=== PATIENT | male | born 1940 | race Caucasian/White ===

== ENCOUNTER 2017-06-25 06:04 | Observation (INO) ==
[2017-06-25] MEDS ORDERED: 0.9 % Sodium Chloride 1,000 ML IVC ONE (06:27)
[2017-06-25] MEDS ORDERED: Ondansetron 4 MG/2 ML VIAL IVP ONE (06:31)
--- NOTE | 2017-06-25 06:31 | Emergency Department Note ---
Disposition Clinical Impression: Bradycardia Syncope Qualifiers: Syncope type: unspecified Qualified Code(s): R55 - Syncope and collapse Disposition: Still a Patient Condition: Fair Forms: ED Satisfaction Letter General Adult HPI - General Chief complaint: ED Fall Stated complaint: fall Time Seen by Provider: 06/25/17 06:15 Source: patient Mode of arrival: ambulatory Limitations: no limitations Nursing Notes Reviewed: Yes Vital Signs Reviewed: Yes - History of Present Illness HPI Narrative: 77-year-old male presents for evaluation of syncope. Patient states that he got up early this morning the help with his . Patient states that he ambulated to the restroom and use the restroom and then was ambulating back and felt foggy in the head. Patient also noted some nausea. Patient did not throughout but stated that he sat down in the chair. Patient then had a witnessed syncopal episode lasting approximately a minute. Patient denies simply falling asleep. Patient aroused without intervention. Syncope was witnessed by his . Patient slid out of the chair. Patient denies any headache. Patient denies any chest pain but did state that he felt diaphoretic. Patient denies any dyspnea. Denies any fevers. Patient states that he has increased his activity level over the past few days. Patient states that his heart rate typically runs around 60 and is not on any beta heath. Pain Scale: 0 - Related Data Home Medications Medication Instructions Recorded Confirmed Simvastatin 05/30/16 Synthroid 05/30/16 Previous Rx's Medication Instructions Recorded Amoxicillin 875 mg PO BID #20 tablet 05/30/16 DiphenhydraMINE [Benadryl] 25 mg PO Q8HR PRN #20 capsule 05/30/16 GuaiFENesin/Codeine [Robitussin 5 ml PO Q6HR PRN #120 ml 05/30/16 w/Codeine] Allergies Allergy/AdvReac Type Severity Reaction Status Date / Time No Known Allergies Allergy Verified 05/30/16 11:47 All systems ED: reviewed and negative except as stated. Constitutional: Denies: fever Cardiovascular: Denies: chest pain Respiratory: Denies: cough, dyspnea Gastrointestinal: Denies: abdominal pain, nausea, vomiting Past Medical History - Past Medical History Source: patient Medical history: Reports: hyperlipidemia, thyroid disease Psychiatric history: Reports: no psych history - Social History Smoking Status: Never smoker Smokeless Tobacco Status: No Alcohol use: Reports: occasionally Drug use: Reports: none Physical Exam - General Limitations: no limitations General appearance: alert, in no apparent distress - Head Head exam: atraumatic, normocephalic, normal inspection - Eye Eye exam: Present: normal appearance, PERRL, EOMI - ENT ENT exam: normal exam, normal oropharynx, mucous membranes moist - Neck Neck exam: Present: normal inspection - Chest Chest inspection: Present: normal inspection, symmetric chest wall rise - Respiratory Respiratory exam: Present: normal lung sounds bilaterally. Absent: respiratory distress, prolonged expiratory phase - Cardiovascular Cardiovascular exam: Present: regular rate, normal rhythm. Absent: systolic murmur - Abdominal Exam Abdominal exam: Present: soft, Non-Tender - Extremities Exam Extremities exam: Present: normal inspection. Absent: pedal edema - Back Exam Back exam: Present: normal inspection - Neurological Exam Neurological exam: Present: alert, oriented X3, CN II-XII intact - Skin Skin exam: Present: warm, dry, intact, normal color Course Course Narrative: Patient seen and examined. Patient will get basic cardiopulmonary screening evaluation. Patient also get symptomatic treatment. Disposition pending. - Reevaluation(s) Reevaluation #1: Patient will be signed out to the day shift provider. Time: 07:00 Vital Signs Temperature 97.4 F L 06/25/17 06:09 Pulse Rate 52 06/25/17 06:09 Respiratory Rate 16 06/25/17 06:09 Blood Pressure 169/77 06/25/17 06:09 O2 Sat by Pulse Oximetry 98 06/25/17 06:09 Temperature 97.4 F L 06/25/17 06:09 Pulse Rate 52 06/25/17 06:09 Respiratory Rate 16 06/25/17 06:09 Blood Pressure 169/77 06/25/17 06:09 O2 Sat by Pulse Oximetry 98 06/25/17 06:18 Oxygen Delivery Oxygen Delivery Room Air Medical Decision Making - Lab Data Result diagrams: 06/25/17 06:27 Lab Results 06/25/17 Range/Units 06:27 WBC 5.0 (4.3-11.1) K/mcL RBC 5.11 (4.19-5.50) M/mcL Hgb 16.2 (12.9-16.9) g/dL Hct 46.8 (37.5-50.1) % MCV 91.6 (83.0-100.0) fL MCH 31.7 (28.0-33.3) pg MCHC 34.6 (31.6-35.5) g/dL RDW 12.8 (11.5-14.5) % Plt Count 179 (140-400) K/mcL MPV 10.1 (9.4-12.4) fL Immature Gran % 0.2 (0-4) % Seg Neutrophils % 43.7 % Lymphocytes % 43.3 % Monocytes % 6.0 % Eosinophils % 5.6 % Basophils % 1.2 % Neutrophils # 2.2 (1.6-8.9) K/mcL Lymphocytes # 2.2 (0.6-4.6) K/mcL Monocytes # 0.3 (0.0-1.3) K/mcL Eosinophils # 0.3 (0.0-0.6) K/mcL Basophils # 0.1 (0.0-0.2) K/mcL S.B.A.RSebastian - Malvin.B.A.Jayashree Situation: Demographics Background: Presenting Complaint Assessment: Vital Signs, Patient/Family Expectation Recommendation: Barrier(s) to disposition, Recommendation based on pending studies, treatments, or consults S.B.A.RSebastian Report Given to: Dr. Ribeiro SSebastianB.ABrandon Repor Time: 07:00
[2017-06-25 06:59] LABS: Basophils # 0.1 K/mcL (0.0-0.2); Basophils % 1.2 %; Eosinophils # 0.3 K/mcL (0.0-0.6); Eosinophils % 5.6 %; Hematocrit 46.8 % (37.5-50.1); Hemoglobin 16.2 g/dL (12.9-16.9); Immature Granulocytes % 0.2 % (0-4); Lymphocytes # 2.2 K/mcL (0.6-4.6); Lymphocytes % 43.3 %; Mean Corpuscular HGB Conc 34.6 g/dL (31.6-35.5); Mean Corpuscular Hemoglobin 31.7 pg (28.0-33.3); Mean Corpuscular Volume 91.6 fL (83.0-100.0); Mean Platelet Volume 10.1 fL (9.4-12.4); Monocytes # 0.3 K/mcL (0.0-1.3); Neutrophils # 2.2 K/mcL (1.6-8.9); Platelet Count 179 K/mcL (140-400); Red Blood Count 5.11 M/mcL (4.19-5.50); Red Cell Distribution Width 12.8 % (11.5-14.5); Segmented Neutrophils % 43.7 %
[2017-06-25 07:04] LABS: Prothrombin Time 11.2 Seconds (9.4-12.1)
[2017-06-25 07:07] LABS: Activated Partial Thrombo Time 26.7 Seconds (26.0-36.0)
[2017-06-25 07:18] LABS: Troponin I < 0.03 ng/mL (< 0.04)
--- NOTE | 2017-06-25 07:20 | Emergency Department Note ---
Disposition Clinical Impression: Bradycardia Syncope Qualifiers: Syncope type: unspecified Qualified Code(s): R55 - Syncope and collapse Disposition: Still a Patient Condition: Fair General Adult HPI - General Chief complaint: ED Fall Stated complaint: fall Time Seen by Provider: 06/25/17 06:15 Source: patient Mode of arrival: ambulatory Limitations: no limitations Nursing Notes Reviewed: Yes Vital Signs Reviewed: Yes - History of Present Illness HPI Narrative: Patient was signed out to me by nighttime physicians Dr. Parker and Dr. Gama for further evaluation and final disposition. Please see their note for further details. Pain Scale: 0 - Related Data Home Medications Medication Instructions Recorded Confirmed Levothyroxine Sodium [Levoxyl] 88 mcg PO DAILY 06/25/17 06/25/17 Simvastatin [Zocor] 20 mg PO QPM 06/25/17 06/25/17 Allergies Allergy/AdvReac Type Severity Reaction Status Date / Time No Known Allergies Allergy Verified 05/30/16 11:47 Constitutional: Denies: fever Cardiovascular: Denies: chest pain Respiratory: Denies: cough, dyspnea Gastrointestinal: Denies: abdominal pain, nausea, vomiting Past Medical History - Past Medical History Medical history: Reports: hyperlipidemia, thyroid disease Psychiatric history: Reports: no psych history - Social History Smoking Status: Never smoker Smokeless Tobacco Status: No Alcohol use: Reports: occasionally Drug use: Reports: none Physical Exam - General Limitations: no limitations General appearance: alert, in no apparent distress Course Course Narrative: Patient was signed out to me by nighttime physicians Dr. Parker and Dr. Gama for further evaluation and final disposition. Please see their note for further details. Jorge is a 77-year-old male history of hypothyroidism and hyperlipidemia presents for syncopal episode. States around 5 o'clock this morning his will, regarding her hammertoe. The stitches had come out and she was bleeding. He states he got up ambulated to the restroom came back down and reports feeling foggy in the head. He sat down in the armchair and then had a syncopal episode for approximately a minute. This was witnessed by his . He denies any prodromal symptoms such as chest pain, shortness of breath, sudden headache. Review of his vital signs she is bradycardic in the mid-50s. Denies any recent illness or fever. He denies taking any beta heath. He states over the past several days he has been more stress lately as he works at the [employer] and is currently changing things around. Denies history of cardiac ischemic disease. Reports his father required pacemaker at the age of 50. On examination patient is awake alert and oriented person place and time. Neurologic exam is normal without any focal neural deficits. He has no neck tenderness. Heart is regular rate and rhythm. Lungs are clear auscultation bilaterally. Review of his EKG shows sinus bradycardia. No delta waves, Brugada pattern or signs of LVH. [place] interval is slightly prolonged 204. Given his symptoms of syncope with bradycardia he may require admission. Labs in CT of the head pending. - Reevaluation(s) Reevaluation #1: Patient remains asymptomatic in the room. Review of the CT of the head unremarkable. Review of the labs shows some hypothyroidism. He has not taken his thyroid medications today. Given his symptoms of syncopal episode and finding of sinus bradycardia and will admit for further observation and management. He has been on a continuous awake overnight monitor without any arrhythmia. EKG does not show any acute ischemic changes. No delta waves, Brugada pattern or signs of LVH. Patients in agreement with plan for admission and evaluation. Impression is syncope and bradycardia. Time: 08:45 - Consultations Consultation #1: Spoke with on-call hospitalist nathan Steele to admit for syncope and bradycardia. No further orders at this time Time: 08:46 Vital Signs Temperature 97.4 F L 06/25/17 06:09 Pulse Rate 52 06/25/17 06:09 Respiratory Rate 16 06/25/17 06:09 Blood Pressure 169/77 06/25/17 06:09 O2 Sat by Pulse Oximetry 98 06/25/17 06:09 Temperature 97.4 F L 06/25/17 06:09 Pulse Rate 52 06/25/17 09:02 Respiratory Rate 17 06/25/17 09:31 Blood Pressure 134/81 06/25/17 09:31 O2 Sat by Pulse Oximetry 96 06/25/17 09:02 Oxygen Delivery Oxygen Delivery Room Air Medical Decision Making - MDM Narrative Medical decision making narrative: Patient was discussed with my attending physician who agrees with ED management and final disposition. They independently evaluated the patient. Please refer to their attestation to this encounter for additional information. This note was generated by [employer] voice recognition software and as a result grammatical or spelling errors may occur using this program. - Medical Records Medical records reviewed: Yes I reviewed the patient's medical records. - Lab Data Lab results reviewed: Yes I reviewed the patient's lab results. Result diagrams: 06/25/17 06:27 06/25/17 06:27 Lab Results 06/25/17 06/25/17 06/25/17 Range/Units 06:27 06:27 06:27 WBC 5.0 (4.3-11.1) K/mcL RBC 5.11 (4.19-5.50) M/mcL Hgb 16.2 (12.9-16.9) g/dL Hct 46.8 (37.5-50.1) % MCV 91.6 (83.0-100.0) fL MCH 31.7 (28.0-33.3) pg MCHC 34.6 (31.6-35.5) g/dL RDW 12.8 (11.5-14.5) % Plt Count 179 (140-400) K/mcL MPV 10.1 (9.4-12.4) fL Immature Gran % 0.2 (0-4) % Seg Neutrophils % 43.7 % Lymphocytes % 43.3 % Monocytes % 6.0 % Eosinophils % 5.6 % Basophils % 1.2 % Neutrophils # 2.2 (1.6-8.9) K/mcL Lymphocytes # 2.2 (0.6-4.6) K/mcL Monocytes # 0.3 (0.0-1.3) K/mcL Eosinophils # 0.3 (0.0-0.6) K/mcL Basophils # 0.1 (0.0-0.2) K/mcL PT 11.2 (9.4-12.1) Seconds INR 1.0 APTT 26.7 (26.0-36.0) Seconds Sodium 137 (136-145) mEq/L Potassium 4.4 (3.5-5.1) mEq/L Chloride 109 H (98-107) mEq/L Carbon Dioxide 21 L (23-29) mEq/L BUN 24 H (8-23) mg/dL Creatinine 0.97 (0.70-1.30) mg/dL Est GFR ( Amer) > 60 (> 60) Est GFR (Non-Af Amer) > 60 (> 60) BUN/Creatinine Ratio 25 (6-26) Glucose 120 H (70-105) mg/dL Calculated Osmolality 289 (280-300) Calcium 9.3 (8.6-10.3) mg/dL Troponin I < 0.03 (< 0.04) ng/mL TSH (0.340-5.600) mcIU/mL Urine Color (Yellow) Urine Clarity (Clear) Urine pH (5.0-8.0) pH Units Ur Specific [place] (1.010-1.025) Urine Protein (Neg-Trace) mg/dL Urine Glucose (UA) (Normal) mg/dL Urine Ketones (Negative) mg/dL Urine Blood (Negative) Urine Nitrite (Negative) Urine Bilirubin (Negative) Urine Urobilinogen (Normal) mg/dL Ur Leukocyte Esterase (Negative) 06/25/17 06/25/17 Range/Units 06:33 08:04 WBC (4.3-11.1) K/mcL RBC (4.19-5.50) M/mcL Hgb (12.9-16.9) g/dL Hct (37.5-50.1) % MCV (83.0-100.0) fL MCH (28.0-33.3) pg MCHC (31.6-35.5) g/dL RDW (11.5-14.5) % Plt Count (140-400) K/mcL MPV (9.4-12.4) fL Immature Gran % (0-4) % Seg Neutrophils % % Lymphocytes % % Monocytes % % Eosinophils % % Basophils % % Neutrophils # (1.6-8.9) K/mcL Lymphocytes # (0.6-4.6) K/mcL Monocytes # (0.0-1.3) K/mcL Eosinophils # (0.0-0.6) K/mcL Basophils # (0.0-0.2) K/mcL PT (9.4-12.1) Seconds INR APTT (26.0-36.0) Seconds Sodium (136-145) mEq/L Potassium (3.5-5.1) mEq/L Chloride (98-107) mEq/L Carbon Dioxide (23-29) mEq/L BUN (8-23) mg/dL Creatinine (0.70-1.30) mg/dL Est GFR ( Amer) (> 60) Est GFR (Non-Af Amer) (> 60) BUN/Creatinine Ratio (6-26) Glucose (70-105) mg/dL Calculated Osmolality (280-300) Calcium (8.6-10.3) mg/dL Troponin I (< 0.04) ng/mL TSH 6.978 H (0.340-5.600) mcIU/mL Urine Color Yellow (Yellow) Urine Clarity Clear (Clear) Urine pH 6.0 (5.0-8.0) pH Units Ur Specific [place] 1.019 (1.010-1.025) Urine Protein Negative (Neg-Trace) mg/dL Urine Glucose (UA) Normal (Normal) mg/dL Urine Ketones Negative (Negative) mg/dL Urine Blood Negative (Negative) Urine Nitrite Negative (Negative) Urine Bilirubin Negative (Negative) Urine Urobilinogen Normal (Normal) mg/dL Ur Leukocyte Esterase Negative (Negative) - Radiology Data Radiology results reviewed: Yes I reviewed the patient's radiology results. Chest X-Ray 06/25/17 06:27 IMPRESSION: Low lung volumes. No acute cardiopulmonary process. D/ / Agusto Mendoza MD / Agusto Mendoza MD Interpreting Provider: Agusto Mendoza MD Head CT 06/25/17 06:28 IMPRESSION: No acute intracranial abnormality. D/ / Devan Elaine / Devan Elaine Interpreting Provider: Devan Elaine - EKG Data EKG #1 EKG attestation: Yes I reviewed and interpreted this EKG. EKG results narrative: EKG performed 0646 sinus bradycardia 51 bpm, normal axis, good R wave progression, no ST elevation or depression, prolonged [place] interval 204 without dropped beats. No signs of Brugada pattern, LVH or delta waves. No acute ischemic changes. Attestation Statement - Attestation Attestation: I, Sergio Avalos DO, examined this patient [id number] and my medical decision-making was reviewed with Lester Ribeiro DO , Resident Physician. I agree with the documented findings, disposition and treatment plan as described except to the extent set forth below. Please see my progress notes for details.
--- NOTE | 2017-06-25 07:37 | Emergency Department Note ---
Disposition Clinical Impression: Bradycardia Syncope Qualifiers: Syncope type: unspecified Qualified Code(s): R55 - Syncope and collapse Disposition: Still a Patient Condition: Fair Referrals: Jose Parra DO [Primary Care Provider] - Forms: ED Satisfaction Letter Time of Disposition: 08:35 General Adult HPI - General Chief complaint: ED Fall Stated complaint: fall Time Seen by Provider: 06/25/17 06:15 Source: patient Mode of arrival: ambulatory Limitations: no limitations - History of Present Illness Pain Scale: 0 - Related Data Home Medications Medication Instructions Recorded Confirmed Simvastatin 05/30/16 Synthroid 05/30/16 Previous Rx's Medication Instructions Recorded Amoxicillin 875 mg PO BID #20 tablet 05/30/16 DiphenhydraMINE [Benadryl] 25 mg PO Q8HR PRN #20 capsule 05/30/16 GuaiFENesin/Codeine [Robitussin 5 ml PO Q6HR PRN #120 ml 05/30/16 w/Codeine] Allergies Allergy/AdvReac Type Severity Reaction Status Date / Time No Known Allergies Allergy Verified 05/30/16 11:47 Constitutional: Denies: fever Cardiovascular: Denies: chest pain Respiratory: Denies: cough, dyspnea Gastrointestinal: Denies: abdominal pain, nausea, vomiting Past Medical History - Past Medical History Medical history: Reports: hyperlipidemia, thyroid disease Psychiatric history: Reports: no psych history - Social History Smoking Status: Never smoker Smokeless Tobacco Status: No Alcohol use: Reports: occasionally Drug use: Reports: none Physical Exam - General Limitations: no limitations General appearance: alert, in no apparent distress Course Vital Signs Temperature 97.4 F L 06/25/17 06:09 Pulse Rate 52 06/25/17 06:09 Respiratory Rate 16 06/25/17 06:09 Blood Pressure 169/77 06/25/17 06:09 O2 Sat by Pulse Oximetry 98 06/25/17 06:09 Temperature 97.4 F L 06/25/17 06:09 Pulse Rate 53 06/25/17 08:00 Respiratory Rate 12 06/25/17 08:00 Blood Pressure 142/91 06/25/17 08:00 O2 Sat by Pulse Oximetry 99 06/25/17 08:00 Oxygen Delivery Oxygen Delivery Room Air Medical Decision Making - Lab Data Result diagrams: 06/25/17 06:27 06/25/17 06:27 Lab Results 06/25/17 06/25/17 06/25/17 Range/Units 06:27 06:27 06:27 WBC 5.0 (4.3-11.1) K/mcL RBC 5.11 (4.19-5.50) M/mcL Hgb 16.2 (12.9-16.9) g/dL Hct 46.8 (37.5-50.1) % MCV 91.6 (83.0-100.0) fL MCH 31.7 (28.0-33.3) pg MCHC 34.6 (31.6-35.5) g/dL RDW 12.8 (11.5-14.5) % Plt Count 179 (140-400) K/mcL MPV 10.1 (9.4-12.4) fL Immature Gran % 0.2 (0-4) % Seg Neutrophils % 43.7 % Lymphocytes % 43.3 % Monocytes % 6.0 % Eosinophils % 5.6 % Basophils % 1.2 % Neutrophils # 2.2 (1.6-8.9) K/mcL Lymphocytes # 2.2 (0.6-4.6) K/mcL Monocytes # 0.3 (0.0-1.3) K/mcL Eosinophils # 0.3 (0.0-0.6) K/mcL Basophils # 0.1 (0.0-0.2) K/mcL PT 11.2 (9.4-12.1) Seconds INR 1.0 APTT 26.7 (26.0-36.0) Seconds Sodium 137 (136-145) mEq/L Potassium 4.4 (3.5-5.1) mEq/L Chloride 109 H (98-107) mEq/L Carbon Dioxide 21 L (23-29) mEq/L BUN 24 H (8-23) mg/dL Creatinine 0.97 (0.70-1.30) mg/dL Est GFR ( Amer) > 60 (> 60) Est GFR (Non-Af Amer) > 60 (> 60) BUN/Creatinine Ratio 25 (6-26) Glucose 120 H (70-105) mg/dL Calculated Osmolality 289 (280-300) Calcium 9.3 (8.6-10.3) mg/dL Troponin I < 0.03 (< 0.04) ng/mL TSH (0.340-5.600) mcIU/mL 06/25/17 Range/Units 06:33 WBC (4.3-11.1) K/mcL RBC (4.19-5.50) M/mcL Hgb (12.9-16.9) g/dL Hct (37.5-50.1) % MCV (83.0-100.0) fL MCH (28.0-33.3) pg MCHC (31.6-35.5) g/dL RDW (11.5-14.5) % Plt Count (140-400) K/mcL MPV (9.4-12.4) fL Immature Gran % (0-4) % Seg Neutrophils % % Lymphocytes % % Monocytes % % Eosinophils % % Basophils % % Neutrophils # (1.6-8.9) K/mcL Lymphocytes # (0.6-4.6) K/mcL Monocytes # (0.0-1.3) K/mcL Eosinophils # (0.0-0.6) K/mcL Basophils # (0.0-0.2) K/mcL PT (9.4-12.1) Seconds INR APTT (26.0-36.0) Seconds Sodium (136-145) mEq/L Potassium (3.5-5.1) mEq/L Chloride (98-107) mEq/L Carbon Dioxide (23-29) mEq/L BUN (8-23) mg/dL Creatinine (0.70-1.30) mg/dL Est GFR ( Amer) (> 60) Est GFR (Non-Af Amer) (> 60) BUN/Creatinine Ratio (6-26) Glucose (70-105) mg/dL Calculated Osmolality (280-300) Calcium (8.6-10.3) mg/dL Troponin I (< 0.04) ng/mL TSH 6.978 H (0.340-5.600) mcIU/mL Attestation Statement - Attestation Attestation: I, Sergio Avalos DO, examined this patient [id number] and my medical decision-making was reviewed with Lester Ribeiro DO ), Resident Physician. I agree with the documented findings, disposition and treatment plan as described except to the extent set forth below. Please see my progress notes for details. 77-year-old male presents to the emergency room with what appears to be a syncopal event at home. This morning he got up to aid his who recently had surgery. Wall walking around the house he went to the bathroom and came out to the living room and felt lightheaded. He sat down into the couch and then had a syncopal event. She slid to the side of the couch and then onto the floor. Denied any other specific trauma or injury. Denies any blood thinners at this point. He does not take an aspirin. His initial workup started by the nighttime physicians needed have a heart rate of 50 on presentation. Aside from that he had no neurologic deficits other symptoms. Repeat evaluation by myself and the resident physician at the bedside confirms no acute neurologic deficits or issues. His head is atraumatic his pupils are equal round reactive his extraocular muscles are intact. He speaks in clear fluent sentences. He has no neurologic issues. Cranial nerves III through XII are grossly intact his oropharynx is patent trachea is midline his lungs are clear his heart is regular. Abdomen is soft nontender nondistended with no guarding or rigidity. Patient moves all 4 of his extremities without any acute signs of ataxia deficit. He has no signs of pitting edema he has good palpable pulses and warm skin to the touch. Patient is concerning for a syncopal event with on known etiology at this point. Patient does not have any history of syncope. He really does not have any other specific medical history. He does have a father had early cardiac disease and required pacemaker to young age. This gentleman has not had any medical issues and is 77 years old at this time. Because of the presentation symptoms in the syncopal event patient will most likely require admission after CT imaging of the head chest EKG and labs are completed. Patient does disclose that has been under a great deal of stress and has been exerting himself more frequently and with higher levels of exertion over the last several days this could be the source. Because of his age his medical history his family history and the presentation a concern is for an unprovoked syncopal events here today. Patient's disposition will be determined once workup and treatment course are evaluated. See detailed documentation of the physical exam, medical intervention, medical decision- making and disposition in the resident physician's note. No critical care was applied this patient's treatment course this time. [address] imaging of the head. He has been asymptomatic throughout the treatment course here in the emergency room. Admission process will be completed for unprovoked syncopal events here today with bradycardia on his EKG and on the monitor throughout the treatment course. Patient is otherwise clinically stable. Patient will be admitted this time for further workup and management. 0830 Patient discussed with the hospitalist Charlene Santillan. Patient will be admitted for syncopal evaluation. The workup and treatment here has been unremarkable. Patient is otherwise stable. No recommendations for the hospitalist this time. Patient will be observed in emergency room until admission process is completed.
[2017-06-25 07:40] LABS: BUN/Creatinine Ratio 25 (6-26); Blood Urea Nitrogen 24 mg/dL (8-23); Calcium 9.3 mg/dL (8.6-10.3); Carbon Dioxide 21 mEq/L (23-29); Chloride 109 mEq/L (98-107); Glucose 120 mg/dL (70-105); Osmolality,Calculated 289 (280-300); Potassium 4.4 mEq/L (3.5-5.1); Sodium 137 mEq/L (136-145); eGFR For African Americans > 60 (> 60); eGFR For Non-African Americans > 60 (> 60)
[2017-06-25 08:32] LABS: Bilirubin,Urine Negative (Negative); Blood,Urine Negative (Negative); Clarity,Urine Clear (Clear); Color,Urine Yellow (Yellow); Glucose,Urine (UA) Normal (Normal); Ketones,Urine Negative (Negative); Leukocyte Esterase,Urine Negative (Negative); Nitrite,Urine Negative (Negative); Protein,Urine Negative (Neg-Trace); Specific Gravity,Urine 1.019 (1.010-1.025); Urobilinogen,Urine Normal (Normal)
[2017-06-25] MEDS ORDERED: Naloxone 0.4 MG/ML INJ IVP PRN (11:06)
[2017-06-25] MEDS ORDERED: traMADol 50 MG TABLET PO PRN (11:06)
[2017-06-25] MEDS ORDERED: Acetaminophen 325 MG TABLET PO PRN (11:06)
--- NOTE | 2017-06-25 11:26 | Internal Med History&Physical ---
<Ravi Loza - Last Filed: 06/25/17 11:23> Date of Encounter: 06/25/17 Time of Encounter: 11:23 Internal Medicine - H&P: HPI Admitted From: Home Plans for Post Hospital Care: Home History of present illness: Jorge is a 77-year-old male history of hypothyroidism and hyperlipidemia presents for syncopal episode. States around 5 o'clock this morning his will, regarding her hammertoe. The stitches had come out and she was bleeding. He states he got up ambulated to the restroom came back down and reports feeling foggy in the head. He sat down in the armchair and then had a syncopal episode for approximately a minute. This was witnessed by his . He denies any prodromal symptoms such as chest pain, shortness of breath, sudden headache. Review of his vital signs she is bradycardic in the mid-50s. Denies any recent illness or fever. He denies taking any beta heath. He states over the past several days he has been more stress lately as he works at the [employer] and is currently changing things around. Denies history of cardiac ischemic disease. Reports his father required pacemaker at the age of 50. At the ED, his vital signs were stable. Labs revealed elevated TSH. EKG normal sinus bradycardia with heart rate 55, borderline first-degree AV block. Chest x-ray and CT head no acute abnormalities. Patient will be admitted as observation for further evaluation and treatment. Past Med Surg Social Fam HX - Past Medical History Medical history: hyperlipidemia, thyroid disease Psychiatric history: no psych history - Past Surgical History Surgical History: other - Social History Smoking Status: Never smoker Smokeless Tobacco Status: No Alcohol use: occasionally Drug use: none - Family History Father Living Status: Cause of : ND Hx Family Cardiac Disorders: Yes Hx Family GI Disorders: Yes Mother Hx Family Cardiac Disorders: Yes Hx Family Respiratory Disorders: No Hx Family Cancer: Yes Internal Medicine - H&P: Meds Levothyroxine Sodium [Levoxyl] 88 mcg PO DAILY 06/25/17 [History] Simvastatin [Zocor] 20 mg PO QPM 06/25/17 [History] 3 Allergy/AdvReac Type Severity Reaction Status Date / Time No Known Allergies Allergy Verified 05/30/16 11:47 All Systems PM: A 10-system review of systems was performed and is negative for pertinent findings except as documented above in the HPI. Review of systems: REVIEW OF SYSTEMS: CONSTITUTIONAL: No weight loss, fever, chills, weakness or fatigue. HEENT: Eyes: No visual loss, blurred vision, double vision or yellow sclerae. Ears, Nose, Throat: No hearing loss, sneezing, congestion, runny nose or sore throat. SKIN: No rash or itching. CARDIOVASCULAR: No chest pain, chest pressure or chest discomfort. No palpitations or edema. RESPIRATORY: No shortness of breath, cough or sputum. GASTROINTESTINAL: No anorexia, nausea, vomiting or diarrhea. No abdominal pain or blood. GENITOURINARY: No dysuria, urgency, or frequency. NEUROLOGICAL: No headache, dizziness, syncope, paralysis, ataxia, numbness or tingling in the extremities. No change in bowel or bladder control. MUSCULOSKELETAL: No muscle, back pain, joint pain or stiffness. HEMATOLOGIC: No anemia, bleeding or bruising. LYMPHATICS: No enlarged nodes. No history of splenectomy. PSYCHIATRIC: No history of depression or anxiety. ENDOCRINOLOGIC: No reports of sweating, cold or heat intolerance. No polyuria or polydipsia. - Constitutional Vitals: Temp Pulse Resp BP Pulse Ox 98.1 F 50 18 135/83 98 06/25/17 10:03 06/25/17 10:03 06/25/17 10:03 06/25/17 10:03 06/25/17 10:03 General appearance: Present: A&O X 3 Exam: PHYSICAL EXAMINATION: GENERAL APPEARANCE: The patient is alert, oriented and in no acute distress. HEENT: Head is normocephalic. The sinuses are nontender. Pupils are equal and reactive. The nares are patent. Oropharynx clear without lesions. NECK: Supple without lymphadenopathy. HEART: Regular rate and rhythm. LUNGS: No crackles or wheezes are heard. ABDOMEN: Soft, nontender, nondistended with good bowel sounds heard. Inguinal area is normal. EXTREMITIES: Without cyanosis, clubbing or edema. NEUROLOGICAL: Gross nonfocal. SKIN: Warm and dry without any rash. Internal Med - H&P Results - Labs CBC & Chem 7: 06/25/17 06:27 06/25/17 06:27 - Assessment and plan (1) Syncope Current Visit: Yes Status: Acute Assessment and plan: - 77-year-old male with past medical history of hypothyroidism and the hyperlipidemia presented with one episode of syncope, lasted about 1 minute. - He does not have previous cardiac/neural history. Since this is the first episode, we will perform extensive workup including MRI head, carotid Doppler, and the echocardiogram. - Continue cycle troponin for 3 more sets, continue telemetry monitoring, EKG as needed. Qualifiers: Syncope type: unspecified Qualified Code(s): R55 - Syncope and collapse (2) Bradycardia Current Visit: Yes Status: Acute Assessment and plan: - Sinus bradycardia with heart rate of 55, first-degree AV block. Unsure the EKG finding has anything to do with a syncopal episode, continue telemetry monitoring. (3) Hyperlipidemia Current Visit: No Status: Chronic Assessment and plan: - Continue home medications. Qualifiers: Hyperlipidemia type: pure hypercholesterolemia Qualified Code(s): E78.00 - Pure hypercholesterolemia, unspecified; E78.0 - Pure hypercholesterolemia (4) Adult hypothyroidism Current Visit: No Status: Chronic Assessment and plan: - TSH was slightly elevated , she reported he skipped several doses in the past of couple days because of family issues. Continue home medication. - Repeated TSH as outpatient, if still low, Synthroid dose may need to be adjusted. - Time Spent With Patient Total time spent is greater than 50% in coordination of care (as documented) at patient's floor/unit and/or counseling patient: Greater than 35 minutes <Laney Balbuena - Last Filed: 06/25/17 12:44> Date of Encounter: 06/25/17 Internal Medicine - H&P: HPI History of present illness: Mr. Frausto is a 77 year old male All Systems PM: A 10-system review of systems was performed and is negative for pertinent findings except as documented above in the HPI. - Constitutional Vitals: Temp Pulse Resp BP Pulse Ox 98.1 F 50 18 135/83 98 06/25/17 10:03 06/25/17 10:03 06/25/17 10:03 06/25/17 10:03 06/25/17 10:03 Internal Med - H&P Results - Labs CBC & Chem 7: 06/25/17 06:27 06/25/17 06:27 - Attending Attestation Examined the patient. Review of the note of mid-level provider and agreed with plan of care. Patient had syncope attack never had any cardiac workup done and no previous history of stroke or cardiac illness though he has positive family history of cardiac disease in his parents. Therefore neurocardiac workup ordered such as MRI brain, carotid ultrasound, echocardiogram keep him in telemetry bed, fasting lipid profile. Start baby aspirin and statin. - Assessment and plan (1) Syncope Current Visit: Yes Status: Acute Qualifiers: Syncope type: unspecified Qualified Code(s): R55 - Syncope and collapse (2) Bradycardia Current Visit: Yes Status: Acute (3) Hyperlipidemia Current Visit: No Status: Chronic Qualifiers: Hyperlipidemia type: pure hypercholesterolemia Qualified Code(s): E78.00 - Pure hypercholesterolemia, unspecified; E78.0 - Pure hypercholesterolemia (4) Adult hypothyroidism Current Visit: No Status: Chronic - Time Spent With Patient Total time spent is greater than 50% in coordination of care (as documented) at patient's floor/unit and/or counseling patient:
[2017-06-25] MEDS: Aspirin Enteric Coated 81 MG Tablet PO SCH (12:24)
[2017-06-25] MEDS: *HR* Heparin 5,000 UNIT/ML VIAL SQ SCH (18:01)
[2017-06-26] MEDS: *HR* Heparin 5,000 UNIT/ML VIAL SQ SCH (04:57)
[2017-06-26 05:34] LABS: Alanine Aminotransferase 21 Units/L (7-52); Albumin/Globulin Ratio 1.7 (1.1-2.2); Alkaline Phosphatase 31 Units/L (34-104); Aspartate Amino Transferase 18 Units/L (13-39); BUN/Creatinine Ratio 22 (6-26); Bilirubin,Total 0.8 mg/dL (0.3-1.0); Blood Urea Nitrogen 23 mg/dL (8-23); Carbon Dioxide 25 mEq/L (23-29); Chloride 110 mEq/L (98-107); Globulin 2.4 g/dL (2.4-3.5); Glucose 114 mg/dL (70-105); Osmolality,Calculated 297 (280-300); Sodium 141 mEq/L (136-145); Total Protein 6.4 g/dL (6.4-8.9); eGFR For African Americans > 60 (> 60); eGFR For Non-African Americans > 60 (> 60)
[2017-06-26] MEDS: Aspirin Enteric Coated 81 MG Tablet PO SCH (09:29)
[2017-06-26 14:32] VITALS: BP 114/65
--- NOTE | 2017-06-26 15:50 | Discharge Summary ---
- NOTES TO OUTPATIENT PROVIDER Notes to Outpatient Provider: Patient had elevated TSH he had missed several doses of synthroid, will need to recheck TSH and adjust medication accordingly. May need a holter monitor- follow up with cardiology for bradycardia Date of Encounter: 06/26/17 Time of Encounter: 15:47 - Discharge Diagnosis (1) Syncope Priority: Primary Status: Acute Qualifiers: Syncope type: unspecified Qualified Code(s): R55 - Syncope and collapse (2) Bradycardia Priority: Primary Status: Acute (3) Hyperlipidemia Priority: Secondary Status: Chronic Qualifiers: Hyperlipidemia type: pure hypercholesterolemia Qualified Code(s): E78.00 - Pure hypercholesterolemia, unspecified; E78.0 - Pure hypercholesterolemia (4) Adult hypothyroidism Priority: Secondary Status: Chronic Hospital course: Mr. Frausto is a 77 year old male past medical hx of hypothyroidism and HLD presented to the ED for syncopal episode. States around 5 oclock in the am he was awaken by his regarding her recent surgery on her hammertoe. The stitches had come out and she was bleeding. He got up ambulated to bathroom felt foggy and sat down in chair had a witnessed syncopal episode for approx minute . He denies any predromal sx . He was driven to the ED by a friend . He was bradycardic on presentation rate in the 50. He denies any BB use, denies any hx of cardiac disease. EKG NSR bradycardia borderline first degree AV block. CXR and CT of head with no acute abnormalities LABS unremarkable except elevated TSH which he states he has missed several dose of synthroid. Orthostatic were WNL echo EF 55-60% Normal LV mild left ventricular structure No evidence of pulmonary HTN NO valvular disease Cartoid duplex r cartoid normal , left with nonstenotic plaque. I reviewed EKG and telemetry stips with cardiology MANAGER [employer] Katrina han Average HR 54 on telemetry no arrhythmias. Will have patient follow up with cardiology as outpatient. Reviewed finding with patient who agrees with plan. Advised to follow up with PCP as well as cardiology and to continue home meds. Verbalized understanding He is ready for discharge - Time Spent with Patient Total time spent providing and/or coordinating discharge services: - Discharge Medications Home Medications: Levothyroxine Sodium [Levoxyl] 88 mcg PO DAILY 06/25/17 [History] Simvastatin [Zocor] 20 mg PO QPM 06/25/17 [History] Allergies/Adverse Reactions: 3 Allergy/AdvReac Type Severity Reaction Status Date / Time No Known Allergies Allergy Verified 05/30/16 11:47 Date of admission: 06/25/17 08:46 Primary care physician: Jose Parra, Discharging clinician: Shabana Kilpatrick Anticipated date of discharge: 06/26/17 - Constitutional Vitals: Temp Pulse Resp BP Pulse Ox 98.4 F 60 15 114/65 95 06/26/17 14:30 06/26/17 14:30 06/26/17 14:30 06/26/17 14:30 06/26/17 14:30 General appearance: Present: A&O X 3 - Head Head exam: Present: atraumatic, normocephalic - Eye Eye exam: Present: PERRL, conjuntiva pink, sclera anicteric Pupils: Present: PERRL - Neck Neck exam general surgery: Present: supple, trachea midline. Absent: lymphadenopathy - Respiratory Respiratory exam: Present: CTAB. Absent: accessory muscle use, rales, rhonchi, wheezes - Patient Status Disposition: Home, Self-Care Condition: Fair Functional capacity at discharge: independent ambulation Overall status at discharge: patient is back to baseline - Discharge Instructions Instructions: Syncope (DC), Bradycardia (DC) Follow Up With: [facility] [Provider Group] Jose Parra DO [Primary Care Provider] - 07/02/17 1:45 pm Additional Instructions: Folllow up with [facility] - Diet and Activity Activity: increase activity as tolerated Diet: advance to your usual diet
--- NOTE | 2017-06-27 19:17 | Electrocardiograph Report ---
[place] [id number] Test Date: 2017-06-25 Pat Name: Jorge Frausto Department: 103 Room: 3B Gender: M [employer]: RADHA : 1940 Requested By: Joaquin Parker Order Number: [id number] Reading MD: Chyna Villalobos Measurements Intervals [place] Rate: 51 P: 21 W[place]: 204 QRS: 6 QRSD: 96 T: 57 QT: 466 QTc: 443 Interpretive Statements SINUS BRADYCARDIA Electronically Signed On 06-27-2017 19:16:11 EDT by Chyna Villalobos
== END 2017-06-26 16:33 | disposition home or self-care (01) | DRG 312 ==
LOC: EMEROO 06:04 → 3BNU 06:04 → INTOOBSV 08:46 → OBSVTOIN 08:46 → 3BNU 09:42
PROVIDERS: ADMIT Registered Nurse; ATTEND Registered Nurse